=== PATIENT | female | born 1970 | race Caucasian/White ===

== ENCOUNTER 2016-10-10 09:42 | Observation (INO) | payer OTHER ==
--- NOTE | 2016-09-14 14:57 | PAT Medication Instructions ---
Service Date Sep 14, 2016. Current Home Medication List Albuterol Hfa (Ventolin Hfa), 2-4 PUFFS INH Q6H Albuterol Sulfate (Albuterol Sulfate), 1 VIAL NEB Q4H PRN for RN Citalopram Hydrobromide (Celexa), 30 MG PO HS Clonazepam (Klonopin), 1 MG PO BID PRN for RN Famotidine (Pepcid), 20 MG PO BID Gabapentin (Neurontin), 600 MG PO QID Hydroxyzine Hcl (Atarax), 50 MG PO QAM Hydroxyzine Pamoate (Vistaril), 100 MG PO HS Lisinopril (Zestril), 20 MG PO QAM Morphine Sulfate (Ms Contin), 30 MG PO Q12 Nasal Wash (Alkalol), 1 DOSE TOP TID PRN for RN Oxycodone Hcl (Oxycontin), 20 MG PO Q6H PRN for RN Pantoprazole (Protonix), 40 MG PO BID [Lidocaine 5%], 1 DOSE TOP TID PRN for PRN Medication Instructions For Your Scheduled Surgery - Hold the following medications 24 hours prior to surgery: [Lidocaine 5%], 1 DOSE TOP TID PRN for PRN - Hold the following medications the morning of surgery: Lisinopril (Zestril), 20 MG PO QAM Famotidine (Pepcid), 20 MG PO BID - Take the following medications the morning of surgery with a sip of water: Albuterol Hfa (Ventolin Hfa), 2-4 PUFFS INH Q6H (bring with you to hospital morning of surgery) Albuterol Sulfate (Albuterol Sulfate), 1 VIAL NEB Q4H PRN for RN Pantoprazole (Protonix), 40 MG PO BID Morphine Sulfate (Ms Contin), 30 MG PO Q12 (okay to take up to 4 hours prior to surgery if needed) Oxycodone Hcl (Oxycontin), 20 MG PO Q6H PRN for RN (okay to take up to 4 hours prior to surgery if needed) Clonazepam (Klonopin), 1 MG PO BID PRN for RN Gabapentin (Neurontin), 600 MG PO QID Hydroxyzine Hcl (Atarax), 50 MG PO QAM Nasal Wash (Alkalol), 1 DOSE TOP TID PRN for RN - Take the following medications as scheduled the night before surgery: Albuterol Hfa (Ventolin Hfa), 2-4 PUFFS INH Q6H Albuterol Sulfate (Albuterol Sulfate), 1 VIAL NEB Q4H PRN for RN Pantoprazole (Protonix), 40 MG PO BID Morphine Sulfate (Ms Contin), 30 MG PO Q12 Oxycodone Hcl (Oxycontin), 20 MG PO Q6H PRN for RN Hydroxyzine Pamoate (Vistaril), 100 MG PO HS Clonazepam (Klonopin), 1 MG PO BID PRN for RN Citalopram Hydrobromide (Celexa), 30 MG PO HS Gabapentin (Neurontin), 600 MG PO QID Famotidine (Pepcid), 20 MG PO BID Nasal Wash (Alkalol), 1 DOSE TOP TID PRN for RN If you have any questions please call us at [phone] (Isabel Webb PA-C) or [phone] or [phone]
[2016-09-14 15:28] LABS: BASO % 1.2 %; COMPLETE YES; EOS % 5.7 %; HEMATOCRIT 47.5 % (37-47); IG% 0.1 %; LYMPH % 40.1 %; LYMPH ABS # 3.48 K/uL (1.2-3.4); MEAN CELL VOLUME 89.6 fL (80-100); MEAN CORPUSCULAR HEMOGLOBIN 31.9 pg (25-34); MEAN CORPUSCULAR HGB CONC 35.6 g/dl (32-36); MEAN PLATELET VOLUME 10.3 fL (7.4-10.4); MONO % 8.4 %; NEUT % 44.5 %; PLATELET COUNT 279 K/uL (130-400); WHITE BLOOD COUNT 8.67 K/uL (4.8-10.8)
--- NOTE | 2016-09-14 15:34 | DIAGNOSTIC IMAGING REPORT ---
CHEST PREADMISSION(PA/LAT) CLINICAL HISTORY: Preoperative evaluation COMPARISON STUDY: No previous studies for comparison. FINDINGS: Lung volumes are normal. There is no pneumothorax or pleural effusion. Cardiac size is normal. Mediastinal contours are normal. A 2 cm irregular density projecting over the left hilum likely reflects normal vessels. There is no consolidation to suggest pneumonia. Elevation of the distal right clavicle is noted. IMPRESSION: 1. 2 cm irregular density projecting over the left hilum. This likely reflects normal vessels with summation artifact. However, a chest CT is recommended to exclude a pulmonary nodule. 2. No acute cardiopulmonary findings. Electronically signed by: Yves Escobar M.D. 09/14/2016 3:33 PM
[2016-09-14 15:40] LABS: PARTIAL THROMBOPLASTIN RATIO 1.2; PROTHROMBIN TIME (PATIENT) 10.4 SECONDS (9.0-12.0)
[2016-09-14 19:08] LABS: CREATININE 0.68 mg/dl (0.60-1.20)
[2016-09-14 19:21] LABS: CALCIUM 9.1 mg/dl (8.5-10.1)
--- NOTE | 2016-10-09 15:18 | HISTORY & PHYSICAL EXAMINATION ---
DATE OF ADMISSION: 10/10/2016 CHIEF COMPLAINT: Right shoulder injury. HISTORY OF PRESENT ILLNESS: This is a 46-year-old female patient of Dr. Caban'jose complaining of a shoulder injury status post a fall off of a ladder at home. She has failed physical therapy, narcotics and MRI showed a nonunion AC separation and distal clavicle fracture. The patient wished to proceed with an arthroscopic AC joint reconstruction with semitendinosis allograft, open distal clavicle excision and possible glenohumeral joint debridement. PAST MEDICAL HISTORY: Hypertension, hypercholesterolemia, irregular heartbeat, COPD, anxiety, carpal tunnel syndrome, neck problems, upper back problems, sciatica, acid reflux, hiatal hernia. SOCIAL HISTORY: A 1-pack per day smoker, lifelong. Not a drinker. PAST SURGICAL HISTORY: Gallbladder, and tubal ligation. FAMILY HISTORY: Noncontributory. REVIEW OF SYSTEMS: The patient complains of chronic right shoulder pain and decreased function. Otherwise, denies any shortness of breath, chest pain, nausea, vomiting or any other joint complaints. MEDICATIONS: Famotidine 20 mg b.i.d., Protonix 40 mg b.i.d., lisinopril 20 mg daily, Neurontin 600 mg q.i.d., hydroxyzine 50 mg daily and then 2 at night, Celexa 20 mg 1-1/2 tablets at bedtime, Klonopin 1 mg b.i.d., morphine 30 mg 1 tablet every 12 hours p.r.n. pain, oxycodone 20 mg every 6 hours p.r.n. pain. ALLERGIES: BENADRYL. PHYSICAL EXAMINATION: GENERAL: Well-developed, well-nourished 46-year-old female in no acute distress. She is alert and oriented x3 and pleasant. HEENT: Normocephalic, atraumatic. Extraocular motions are intact. Pupils are equal and reactive to light. HEART: Regular rate and rhythm, no murmurs are appreciated. LUNGS: Clear. ABDOMEN: Soft and nontender. Bowel sounds present. EXTREMITIES: Right shoulder reveals obvious tenderness over the AC joint. Active range of motion is 120 degrees, passively to 180. She has 3+ to 4/5 strength globally. Neurologically and neurovascularly, she is intact in her right upper extremity. She has about a 3-5 mm palpable separation at the AC joint. DIAGNOSES: Right shoulder acromioclavicular joint separation and distal clavicle fracture. She also has a history of hypertension, hypercholesterolemia, irregular heartbeat, chronic obstructive pulmonary disease, anxiety, carpal tunnel, neck problems, back problems, sciatica, acid reflux, hiatal hernia. PLAN: The patient was advised of her diagnosis. Indications, risks, benefits, and postop course have all been reviewed. The patient wished to proceed with a right shoulder arthroscopic AC joint reconstruction with semitendinosis allograft, open distal clavicle excision and possible glenohumeral joint debridement. Necessary consent forms, preoperative testing and clearances will be obtained.
[~2016-10-10] VITALS: Ht 160 cm; Wt 51.2 kg
[2016-10-10] VITALS (7 sets, daily range): BP systolic 109–139; BP diastolic 75–93; PULSE 81–109; TEMP 36.4–37; O2SAT 91–96; Ht 160 cm; Wt 51.2 kg
[~2016-10-10 09:42] MED LIST: ALBU0.633 NEB; BUPIVACAINE 0.5 % 5 MG/1 ML PF 10ML VIAL ONE; CEFAZOLIN 1000MG/55 ML D5W IV SCH; CITA10TA8 PO; CLON1TAB3 PO; DEXAMETHASONE SOD INJ 4 MG/ML VIAL ONE; FAMO20TA11 PO; GABA-113 PO; HYDR-3126 PO; HYDR50CA2 PO; LACTATED RINGER'S 1000ML 1,000 ML IV SCH; LIDOCAINE 5% TOP; LISI-725 PO; MORP30TA23 PO; OXYC20TA50 PO; PANT40TA PO; VNTHFA/IN INH; [UNRECOGNIZED DRUG - CODE] TOP
[2016-10-10] MEDS ORDERED: GLYCOPYRROLATE INJ 0.2 MG/ML VIAL ONE (11:21)
[2016-10-10] MEDS ORDERED: ROCURONIUM BROMIDE 10 MG/ML 5 ML VIAL ONE (11:21)
[2016-10-10] MEDS ORDERED: PROPOFOL IV EMULSION 10 MG/ML 20 ML VIAL IV ONE (11:21)
[2016-10-10] MEDS ORDERED: DEXAMETHASONE SOD INJ 4 MG/ML VIAL ONE (11:21)
[2016-10-10] MEDS ORDERED: NEOSTIGMINE METHYLSULFATE 5 MG/5 ML SYR ONE (11:21)
[2016-10-10] MEDS ORDERED: ONDANSETRON INJ 2 MG/ML 2 ML VIAL ONE (11:21)
[2016-10-10] MEDS ORDERED: LIDOCAINE HCL 2% 2 ML VIAL (20MG/ML) ONE (11:21)
[2016-10-10] MEDS ORDERED: FENTANYL CITRATE INJ 50 MCG/1 ML 2 ML VIAL ONE (11:22)
[2016-10-10] MEDS ORDERED: MIDAZOLAM HCL 1 MG/ML 2ML VIAL ONE ×2 (11:22→11:43)
[2016-10-10] MEDS ORDERED: LACTATED RINGER'S 1000ML 1,000 ML IV PRN (11:40)
[2016-10-10] MEDS ORDERED: ONDANSETRON INJ 2 MG/ML 2 ML VIAL IV PRN (11:45)
[2016-10-10] MEDS ORDERED: FENTANYL CITRATE INJ 50 MCG/1 ML 2 ML VIAL IV PRN (11:45)
--- NOTE | 2016-10-10 13:01 | History & Physical Bridge Note ---
H&P Re-Evaluation Bridge Note: I have examined the patient, reviewed the History & Physical and in the interval since the performance of the History & Physical I have noted the following changes of clinical significance: No changes noted
[2016-10-10] MEDS ORDERED: PHENYLEPHRINE HCL INJ 10 MG/ML VIAL ONE (14:11)
[2016-10-10] MEDS ORDERED: EpHEDrine SULFATE INJ 50 MG/ML AMP ONE (15:00)
[2016-10-10] MEDS ORDERED: ALBUTEROL 0.083% NEBU SOLN 3 ML VIAL INH PRN (16:30)
[2016-10-10] MEDS ORDERED: MoRPHine SULFATE 2 MG/ML CARP IV PRN ×2 (16:30→18:15)
[2016-10-10] MEDS ORDERED: LIDOCAINE HCL 5% OINT 30 GM TUBE EXT PRN (16:30)
[2016-10-10] MEDS ORDERED: CLONAZEPAM 1 MG TAB PO PRN (16:30)
--- NOTE | 2016-10-10 16:50 | Anesthesiology Progress Note ---
Anesthesia Post Op Note Date & Time Oct 10, 2016 at 16:49 Vital Signs Vital Signs Past 12 Hours Date Time Temp Pulse Resp B/P Pulse Ox O2 Delivery O2 Flow Rate FiO2 10/10/16 16:40 95 15 136/96 99 Mask 10 10/10/16 16:31 36.1 92 16 136/108 100 Mask 10 10/10/16 09:50 36.8 109 20 124/88 95 Room Air Notes Mental Status: alert / awake / arousable, participated in evaluation Pt Amnestic to Procedure: Yes Nausea / Vomiting: adequately controlled Pain: adequately controlled Airway Patency, RR, SpO2: stable & adequate BP & HR: stable & adequate Hydration State: stable & adequate Anesthetic Complications: no major complications apparent
[2016-10-10] MEDS ORDERED: MoRPHine SULFATE 4 MG/ML 1 ML CARP\\VIAL IV PRN (18:15)
--- NOTE | 2016-10-10 18:19 | OPERATIVE REPORT ---
DATE OF OPERATION: 10/10/2016 INDICATION FOR PROCEDURE: The patient is a 46-year-old female who sustained a shoulder injury to her right shoulder. She has had chronic pain. She was worked up with x-rays demonstrating a type 3-4 AC joint separation, but there is also a small distal clavicle fracture affecting the articular surface of the joint. The patient has had conservative management. Continues to have pain in her shoulder and prefers reconstructive surgery to living with disability she is having from her shoulder. PREOPERATIVE DIAGNOSES: Chronic right shoulder pain, posttraumatic grade 3-4 acromioclavicular joint separation with distal clavicle fracture and arthritic changes distal clavicle. POSTOPERATIVE DIAGNOSES: Same. PROCEDURES: Right shoulder arthroscopic assisted coracoclavicular ligament reconstruction using Arthrex dog bone technique and semitendinosis allograft and AC ligament augmentation using the semitendinosis allograft with distal clavicle excision. SURGEON: Dr. Caban. FIELD ARTILLERY CANNONEER: Man Padron PA-C. ANESTHESIA: Regional block general. OPERATIVE PROCEDURE: The patient had regional block and then general anesthetic. She was placed on a 70 degree beach chair position on a [facility] shoulder table and the right shoulder was examined. She clearly had instability of the AC joint. The clavicle was translated posteriorly up into and under the trapezius muscle. The shoulder itself had full passive motion otherwise. She is a very petite individual. Her shoulder was first sterilely prepped and draped with ChloraPrep. We marked out the anatomy and I introduced the arthroscope into the glenohumeral joint through a posterior arthroscopy portal in the soft spot. Then I made an anterior lateral arthroscopy portal for repair in the coracoid for the graft. First we did diagnostic arthroscopy and inspected the shoulder. The rotator cuff was intact. The labrum was intact, did have a sublabral foramen and had a biceps anchor that was intact, intact biceps tendon, intact rotator cuff and joint surfaces were normal. Labrum otherwise was normal around the glenoid. At this time, the undersurface of the coracoid was skeletonized using a radiofrequency ablator. The CA ligament was clearly identified as well as the conjoined tendon and then the undersurface of the coracoid identified. Then, the soft tissue was ablated on the undersurface of the coracoid down to the base of the coracoid. The base of the coracoid had a bony excrescence over it and I do not know if this was an old fracture, potentially in that area which is a possibility, was normal curvature and sweep of the undersurface of the coracoid, but there was no false motion consistent with a nonunion. At this time the coracoid was clearly skeletonized from lateral to medial so we could probe both sides of the undersurface of the coracoid and everything was exposed appropriately for graft placement. We had to release some of the upper portion of the middle glenohumeral ligament for visualization. Then, a transverse incision was made over the distal clavicle. There was about a 4 cm incision. The incision was made sharply. Subcutaneous flaps were elevated and then she had thin subcutaneous tissues. The clavicle was clearly displaced under the trapezius muscle posterior to the AC joint, but it was not embedded into the trapezius muscles so this was a type 3 instability. I divided the fascial plane between the deltoid and trapezius overlying the clavicle and coursing across the acromioclavicular joint. Once the joint was exposed it was distorted. There was chronic inflammation there. The end of the clavicle was arthritic and there were some fragments of bone from the fracture that occurred. Bone fragments were debrided, then I trimmed back the distal clavicle, I removed about 8 mm of distal clavicle with the oscillating saw and debrided all the bone fragments we could identify and some of the meniscus remnants and the AC joint. At this time with the clavicle fully mobilized from the scar tissue, the K-wire was placed percutaneously across the acromion and under fluoroscopic guidance with mini fluoroscopy, we advanced K-wire into the distal clavicle to provisionally hold the clavicle in position. After that was performed, I had previously marked the entrance point which was about 3 cm medial to the AC joint for placement of the coracoclavicular dog bone Arthrex fixator. The Arthrex guide was then placed to the anterior lateral portal, placed under the coracoid in the appropriate position and then the angle of the guide was adjusted appropriately. The drill hole was placed centered in the clavicle at the previously chosen spot on the clavicle and with everything in place this time we drilled 4 cortexes and visualized the drill bit coming through the inferior surface of the coracoid in appropriate position and then I passed a nitinol wire which subsequently passed a fiber stick type suture and then with the arthroscope working cannula in the anterolateral portal we passed the dog bone sutures retrograde through the coracoid to the superior clavicle. Then tensioned the sutures appropriately, placed the dog bone lying in the appropriate position under the coracoid, I felt the fixation was solid and then went ahead and in the superior incision, placed the other dog bone on the end of the tapes and advanced this down onto the clavicle. We reduced the clavicle in position and sutured the first tape with a surgeon's knots using an arthroscopic knot tie to make a tighter knot. Then we took the guidepin out, over reduced the clavicle and then further tightened down the second tape of the dog bone with a surgeon's knot as well. These were cut and then we placed the scope back into the joint, identified the placement for the semitendinosis graft. I used a spinal needle first to identify the angle of trajectory for the switching stick which was a pointed switching stick and then we advanced that under arthroscopic visualization into the appropriate position first from posterior clavicle to the medial side of the coracoid. Then we used dilators, starting with a small dilator to the larger dilator and then we passed a nitinol wire again through that tunnel and then passed our passing suture with a wire and then we went ahead and dilated the second tunnel. This one was anterior and going to the lateral side of the coracoid. After that was dilated and the nitinol wire passed, I used the previous passing suture to pass the tails of the semitendinosis graft and we went from superior into the joint and then passed those tails back up around the clavicle and then we looked at this arthroscopically and that the graft was under the coracoid and was over the dog bone. Then, the graft was tightened by crossing it over upon itself and pushing down on the clavicle and up on the elbow to help reduce the clavicle and then sutured the graft to itself with FiberTape sutures. After the FiberTape sutures were tied the lateral limb toward the anterior side was placed across the anterior AC joint. This limb was advanced to the deltoid fascia and deep to the deltoid and anterior to the acromion and anterior to the AC joint as further reinforcement and splinting of the AC joint to prevent posterior translation. Then this was sutured to the deltoid fascia and the end of the graft cut and the end of the other graft was cut. Then at this time the deltotrapezius fascia was closed with [id number] #2 Fiberwire sutures and then the subcutaneous tissue closed with interrupted #2 Vicryl and the skin was closed with khoa. Sterile dressings were applied and a shoulder immobilizer. LUIS ENRIQUE Waterman was my desk assistant. He functioned as desk assistant in the entire procedure. He assisted in patient positioning, prepping, draping in the OR. He repaired the graft which was prepared with whipstitches on both sides of the graft and placement of the tensioner prior to being used and he also performed the subcutaneous and skin closure and dressings and placed in the immobilizer and will participate in the postoperative care of the patient. I attest to the content of the Intraoperative Record and any orders documented therein. Any exceptio ns are noted below.
[2016-10-10] MEDS: D5W AND 1/2NSS + 20MEQ KCL 1,000 ML IV SCH (19:13)
[2016-10-10] MEDS: GABAPENTIN 600 MG TAB PO SCH ×2 (19:15→20:32)
[2016-10-10] MEDS: CEFAZOLIN IV 1,000 MG in DEXTROSE 5% 50ML 50 ML IV SCH (19:15)
[2016-10-10] MEDS: ALBUTEROL HFA 8 GM INHALER INH SCH ×2 (19:16→23:56)
--- NOTE | 2016-10-10 19:21 | DIAGNOSTIC IMAGING REPORT ---
Right shoulder RIGHT SHOULDER MIN 2 VIEW ROUTINE CLINICAL HISTORY: RT RECONSTRUCTION Right reconstruction TECHNIQUE: Image intensifier COMPARISON STUDY: None FINDINGS: Image intensifier utilized for right shoulder operative procedure IMPRESSION: Intraoperative image intensifier utilization Electronically signed by: Man Liriano M.D. 10/10/2016 7:19 PM
[2016-10-10] MEDS ORDERED: IV FLUIDS COMPLETED PRN (19:30)
[2016-10-10] MEDS: MoRPHine SULFATE CR 15 MG TAB (MS CONTIN) PO SCH (20:31)
[2016-10-10] MEDS: FAMOTIDINE 20 MG TAB PO SCH (20:33)
[2016-10-10] MEDS: PANTOprazole SOD 40 MG TAB PO SCH (20:33)
--- NOTE | 2016-10-10 20:34 | Medical Consult ---
Consultation Date of Consultation: Oct 10, 2016. Attending Physician: Israel Caban M.D. Reason for Consultation: Medical eval post-op History of Present Illness 46 y/o F w/Hx COPD, chronic pain, HTN, HPL - had fallen off a ladder and suffered a clavicular fracture - presented to the hospital today for AC joint reconstruction. The surgery proceeded without incident. The pt denies CP, SOB , N/V, fevers or lightheadedness post-op. She states her pain is controlled. Family History Heart disease, Lung disease, CA Social History Smokes 1 pack daily - dependent on a high dose of narcotics - denies ETOH Smoking Status: Current Every Day Smoker Alcohol Use: none Allergies Coded Allergies: Diphenhydramine (Verified Allergy, Unknown, FACE SWELLED THROAT SWELLED, ) Latex1 -Allergic Contact Dermititis (Verified Allergy, Unknown, CONTACT DERMATITIS, 10/10/16) Current Inpatient Medications Current Inpatient Medications Medications (Trade) Dose Ordered Sig/Gordo Route Start Time Stop Time Status Last Admin Dose Admin Lactated Ringer's (Lr 1000ml) 1,000 ml @ 15 mls/hr Q24H IV 10/10/16 06:00 10/11/16 05:59 Albuterol (Ventolin Hfa Inhaler) as needed Q6 INH 10/10/16 18:00 11/09/16 17:59 10/10/16 19:16 2 PUFFS Citalopram Hydrobromide (celeXA TAB) 30 mg HS PO 10/10/16 21:00 11/09/16 20:59 Clonazepam (Klonopin Tab) 1 mg BID PRN PO 10/10/16 16:30 11/09/16 16:29 Famotidine (Pepcid Tab) 20 mg BID PO 10/10/16 21:00 11/09/16 20:59 Gabapentin (Neurontin Tab) 600 mg QID PO 10/10/16 17:00 11/09/16 16:59 10/10/16 19:15 600 MG Hydroxyzine HCl (Vistaril Tab) 50 mg QAM PO 10/11/16 09:00 11/10/16 08:59 Lisinopril (Zestril Tab) 20 mg QAM PO 10/11/16 09:00 11/10/16 08:59 Oxycodone HCl (Oxycontin Tab) 20 mg Q6H PO 10/10/16 20:00 10/24/16 19:59 Pantoprazole Sodium (Protonix Tab) 40 mg BID PO 10/10/16 21:00 11/09/16 20:59 Albuterol Sulfate (Ventolin 0.083% 2.5MG/3ML Neb) 1 mg Q4H PRN INH 10/10/16 16:30 11/09/16 16:29 Hydroxyzine HCl (Vistaril Tab) 100 mg HS PO 10/10/16 21:00 11/09/16 20:59 Morphine Sulfate (Oramorph Sr Tab) 30 mg Q12 PO 10/10/16 21:00 11/09/16 20:59 Lidocaine HCl 1 appln 1 appln TID PRN EXT 10/10/16 16:30 11/09/16 16:29 Potassium Chloride/Dextrose/ Sod Cl 1,000 ml @ 100 mls/hr Q10H IV 10/10/16 16:29 11/09/16 16:28 10/10/16 19:13 100 MLS/HR Cefazolin Sodium/ Dextrose (Ancef Iv/D5 50ml) 55 ml @ 100 mls/hr Q8H IV 10/10/16 19:00 10/11/16 03:32 10/10/16 19:15 100 MLS/HR Acetaminophen (Tylenol Tab) 1,000 mg Q8 PO 10/10/16 22:00 11/09/16 21:59 Morphine Sulfate (MoRPHine SULFATE INJ) 2 mg Q2H PRN IV 10/10/16 18:15 10/24/16 18:14 Morphine Sulfate (MoRPHine SULFATE INJ) 4 mg Q2H PRN IV 10/10/16 18:15 10/24/16 18:14 Miscellaneous (Iv Fluids Completed) 1 ea PRN PRN N/A 10/10/16 19:30 10/10/17 19:29 Review of Systems Constitutional: No chills, No fever, No sweats Eyes: No eye pain, No worsening of vision ENT: No hearing loss, No nasal symptoms, No unusual epistaxis Respiratory: No cough, No sputum, No wheezing Cardiovascular: No PND, No chest pain, No orthopnea Abdomen: No nausea, No pain, No vomiting Musculoskeletal: + joint pain, + muscle pain Genitourinary - Female: No dysuria, No hematuria, No urinary frequency, No urinary incontinence, No urinary retention, No urinary urgency Neurologic: No memory loss, No paralysis, No weakness Psychiatric: No depression symptoms Endocrine: No fatigue Hematologic / Lymphatic: No abnormal bleeding/bruising Integumentary: No rash Allergic / Immunologic: No environmental allergies Physical Exam Date Time Temp Pulse Resp B/P Pulse Ox O2 Delivery O2 Flow Rate FiO2 10/10/16 19:37 36.5 99 16 109/75 93 Nasal Cannula 2.0 10/10/16 18:36 36.5 95 16 122/83 93 Nasal Cannula 2.0 10/10/16 18:02 36.4 81 18 139/93 96 Nasal Cannula 2.0 10/10/16 17:35 36.6 85 12 139/92 96 Nasal Cannula 2.0 10/10/16 17:35 Nasal Cannula 10/10/16 17:35 Nasal Cannula 10/10/16 17:29 87 17 137/89 96 Nasal Cannula 2 10/10/16 17:15 92 18 139/93 96 Nasal Cannula 2 10/10/16 17:00 36.4 93 14 137/90 96 Nasal Cannula 2 10/10/16 16:50 96 15 132/88 99 Mask 10 10/10/16 16:40 95 15 136/96 99 Mask 10 10/10/16 16:31 36.1 92 16 136/108 100 Mask 10 10/10/16 09:50 36.8 109 20 124/88 95 Room Air General Appearance: WD/WN, no apparent distress Head: normocephalic Eyes: normal inspection, PERRL, EOMI ENT: normal ENT inspection, pharynx normal Neck: supple, no JVD Respiratory/Chest: chest non-tender, lungs clear, normal breath sounds, no respiratory distress Cardiovascular: regular rate, rhythm, no edema, no gallop Abdomen/GI: normal bowel sounds, non tender, soft Extremities/Musculoskelatal: normal inspection, + pertinent finding (RUQ immobilized) Neurologic/Psych: videogame designer II-XII nml as tested, no motor/sensory deficits, alert, normal mood/affect, normal reflexes, oriented x 3 Skin: normal color, warm/dry, no rash Assessment & Plan 46 y/o F w/Hx COPD, chronic pain, HTN, HPL - had fallen off a ladder and suffered a clavicular fracture - presented to the hospital today for AC joint reconstruction. The surgery proceeded without incident. The pt denies CP, SOB , N/V, fevers or lightheadedness post-op. She states her pain is controlled. 1) Post - op - recovering well - pain controlled - antiemetics provided PRN, IVF 2) COPD - No wheezing/SOB, hypoxia at present - cont Albuterol 3) GERD - cont Albuterol 4) HTN - cont Lisinopril 5) Adviced on smoking cessation Total time for this consult including discussion with pt, review of records, meds and op records 28 min
[2016-10-10] MEDS: OXYCODONE HCL 20 MG TABCR (OXYCONTIN) PO SCH (20:40)
[2016-10-10] MEDS ORDERED: CITALOPRAM 20 MG TAB PO SCH (21:00)
[2016-10-10] MEDS ORDERED: hydrOXYzine HCL 25 MG TAB PO SCH (21:00)
[2016-10-10] MEDS: ACETAMINOPHEN 500 MG TAB PO SCH (21:39)
[2016-10-11] MEDS: OXYCODONE HCL 20 MG TABCR (OXYCONTIN) PO SCH ×2 (02:16→07:49)
[2016-10-11] MEDS: D5W AND 1/2NSS + 20MEQ KCL 1,000 ML IV SCH (02:16)
[2016-10-11] MEDS: CEFAZOLIN IV 1,000 MG in DEXTROSE 5% 50ML 50 ML IV SCH (02:16)
[2016-10-11 03:45] VITALS: BP 150/88; PULSE 70; TEMP 37.1; O2SAT 91
[2016-10-11] MEDS: ACETAMINOPHEN 500 MG TAB PO SCH (05:55)
[2016-10-11] MEDS: ALBUTEROL HFA 8 GM INHALER INH SCH (05:56)
[2016-10-11 07:09] VITALS: BP 105/64; PULSE 82; TEMP 36.7; O2SAT 90
[2016-10-11 07:20] LABS: HEMATOCRIT 40.7 % (37-47); MEAN CELL VOLUME 87.2 fL (80-100); MEAN CORPUSCULAR HEMOGLOBIN 29.8 pg (25-34); MEAN CORPUSCULAR HGB CONC 34.2 g/dl (32-36); MEAN PLATELET VOLUME 9.9 fL (7.4-10.4); PLATELET COUNT 303 K/uL (130-400); RED BLOOD COUNT 4.67 M/uL (4.2-5.4); WHITE BLOOD COUNT 11.68 K/uL (4.8-10.8)
[2016-10-11 07:52] LABS: BUN/CREATININE RATIO 13.3 (10-20); CALCIUM 8.8 mg/dl (8.5-10.1); CREATININE 0.64 mg/dl (0.60-1.20); POTASSIUM 4.1 mmol/L (3.5-5.1)
--- NOTE | 2016-10-11 08:02 | Orthopedic Progress Note ---
Orthopedic Progress Note Date of Service Oct 11, 2016. Subjective Post OP Day: 1 Reports: feeling well, pain controlled w PO medications, Denies: SOB, calf pain , chest pain, complaints, light headedness, nausea / vomiting Objective N/V intact, capillary refill less than 2 sec., dressing C/D/I, A&O x3 sling in tact, fingers mobile. Date Time Temp Pulse Resp B/P Pulse Ox O2 Delivery O2 Flow Rate FiO2 10/11/16 07:09 36.7 82 16 105/64 90 Room Air 10/11/16 03:45 37.1 70 18 150/88 91 Room Air 10/10/16 23:41 37.0 88 18 136/85 91 Room Air 10/10/16 20:35 36.5 91 14 133/86 94 Nasal Cannula 2.0 10/10/16 19:37 36.5 99 16 109/75 93 Nasal Cannula 2.0 10/10/16 19:00 Room Air 10/10/16 18:36 36.5 95 16 122/83 93 Nasal Cannula 2.0 10/10/16 18:02 36.4 81 18 139/93 96 Nasal Cannula 2.0 10/10/16 17:35 36.6 85 12 139/92 96 Nasal Cannula 2.0 10/10/16 17:35 Nasal Cannula 10/10/16 17:35 Nasal Cannula 10/10/16 17:29 87 17 137/89 96 Nasal Cannula 2 10/10/16 17:15 92 18 139/93 96 Nasal Cannula 2 10/10/16 17:00 36.4 93 14 137/90 96 Nasal Cannula 2 10/10/16 16:50 96 15 132/88 99 Mask 10 10/10/16 16:40 95 15 136/96 99 Mask 10 10/10/16 16:31 36.1 92 16 136/108 100 Mask 10 10/10/16 09:50 36.8 109 20 124/88 95 Room Air Laboratory Results 24 Hours: Test 10/11/16 07:00 Hematocrit 40.7 % Hemoglobin 13.9 g/dL Assessment & Plan Assessment: POD #1, Right shoulder corocoacromial and AC joints reconstructions with semitendosis allograft, open DCE. Plan: NO PT HEP as taught in hospital Pain meds as per pain clinic
[2016-10-11] MEDS ORDERED: OXYC20TA50 PO (08:05)
[2016-10-11] MEDS ORDERED: ACET-1138 PO (08:05)
[2016-10-11] MEDS ORDERED: MORP30TA23 PO (08:05)
--- NOTE | 2016-10-11 08:12 | Discharge Instructions ---
Discharge Instructions Admission Reason for Admission: Right Shoulder Ac Joint Separation, Djd Discharge Discharge Diagnosis / Problem: Rt shoulder AC and corocoacromial reconsrtuctions w allograft Discharge Goals Goal(s): Improve function Activity Recommendations Activity Limitations: as noted below . Instructions / Follow-Up Instructions / Follow-Up NO formal PT. May loosen sling 2-3 daily for elbow motion, do not raise arm above shoulder height. May shower and change dressings post op day #2, then daily dressing changes until follow up. No driving. Ice as needed. Limited pain medication supply given, contact pain clinic to resume pain medication from them there after. Follow up with Dr. Caban or his PA-C 12-14 days post op as scheduled, call to confirm. Current Hospital Diet Patient's current hospital diet: Regular Diet Discharge Diet Recommended Diet: Regular Diet Procedures Procedures Performed: Right Shoulder Scope, Acromioclavicular Joint Reconstruction With Semitendonosis Allograft, Open Distal Clavicle Excision Pending Studies Studies pending at discharge: no Medical Emergencies . Who to Call and When: Medical Emergencies: If at any time you feel your situation is an emergency, please call 911 immediately. . Non-Emergent Contact Non-Emergency issues call your: Surgeon . "Provider Documentation" section prepared by Man Padron. VTE Core Measure Inpt VTE Proph given/why not?: Treatment not indicated
--- NOTE | 2016-10-11 08:21 | Anesthesiology Progress Note ---
Anesthesia Post Op Note Date & Time Oct 11, 2016 at 08:20 Vital Signs Vital Signs Past 12 Hours Date Time Temp Pulse Resp B/P Pulse Ox O2 Delivery O2 Flow Rate FiO2 10/11/16 07:09 36.7 82 16 105/64 90 Room Air 10/11/16 03:45 37.1 70 18 150/88 91 Room Air 10/10/16 23:41 37.0 88 18 136/85 91 Room Air 10/10/16 20:35 36.5 91 14 133/86 94 Nasal Cannula 2.0 Notes Mental Status: alert / awake / arousable, participated in evaluation Pt Amnestic to Procedure: Yes Nausea / Vomiting: adequately controlled Pain: adequately controlled Airway Patency, RR, SpO2: stable & adequate BP & HR: stable & adequate Hydration State: stable & adequate Anesthetic Complications: no major complications apparent
[2016-10-11] MEDS ORDERED: hydrOXYzine HCL 25 MG TAB PO SCH (09:00)
[2016-10-11] MEDS ORDERED: LISINOPRIL 20 MG TAB PO SCH (09:00)
[2016-10-11] MEDS: FAMOTIDINE 20 MG TAB PO SCH (09:17)
[2016-10-11] MEDS: PANTOprazole SOD 40 MG TAB PO SCH (09:17)
[2016-10-11] MEDS: GABAPENTIN 600 MG TAB PO SCH (09:17)
[2016-10-11] MEDS: MoRPHine SULFATE CR 15 MG TAB (MS CONTIN) PO SCH (09:18)
--- NOTE | 2016-10-11 09:20 | Progress Note ---
Subjective Date of Service: Oct 11, 2016. Subjective Pt evaluation today including: conversation w/ patient, physical exam, chart review, lab review, review of studies, conversation w/ agriculture consultant, review of inpatient medication list Voiding: no voiding problems Sitting up, eating meal, right shoulder and right arm in sling, no complaining , no color changes in the finger, noting any numbness, no weakness Review of Systems Constitutional: No chills, No fatigue, No fever, No problem reported, No sweats , No weakness, No weight loss Eyes: No diplopia, No discharge, No eye pain, No redness, No worsening of vision ENT: No dental problems, No hearing loss, No nasal symptoms, No sore throat, No tinnitus, No trouble swallowing, No unusual epistaxis Respiratory: No cough, No dyspnea at rest, No dyspnea on exertion, No hemoptysis, No shortness of breath, No sputum, No wheezing Cardiac: No PND, No chest pain, No claudication, No edema, No orthopnea, No palpitations Abdomen: No constipation, No diarrhea, No nausea, No pain, No vomiting Musculoskeletal: + joint pain, No calf pain, No muscle pain, No swelling Female : No abnormal vaginal bleeding, No dysuria, No hematuria, No incontinence, No urinary frequency, No vaginal discharge Neurologic: No balance problems, No memory loss, No numbness/tingling, No paralysis, No vertigo, No weakness Psychiatric: No anhedonism, No anxiety, No depression symptoms, No insomnia, No substance abuse Heme: No abnormal bleeding/bruising, No clotting problems, No night sweats, No swollen lymph nodes Endo: No excessive thirst, No excessive urination, No fatigue Skin: No bleeding, No color change, No itch, No new/changing skin lesions, No rash Objective Vital Signs Date Time Temp Pulse Resp B/P Pulse Ox O2 Delivery O2 Flow Rate FiO2 10/11/16 07:50 Room Air 10/11/16 07:09 36.7 82 16 105/64 90 Room Air 10/11/16 03:45 37.1 70 18 150/88 91 Room Air 10/10/16 23:41 37.0 88 18 136/85 91 Room Air 10/10/16 20:35 36.5 91 14 133/86 94 Nasal Cannula 2.0 10/10/16 19:37 36.5 99 16 109/75 93 Nasal Cannula 2.0 10/10/16 19:00 Room Air 10/10/16 18:36 36.5 95 16 122/83 93 Nasal Cannula 2.0 10/10/16 18:02 36.4 81 18 139/93 96 Nasal Cannula 2.0 10/10/16 17:35 36.6 85 12 139/92 96 Nasal Cannula 2.0 10/10/16 17:35 Nasal Cannula 10/10/16 17:35 Nasal Cannula 10/10/16 17:29 87 17 137/89 96 Nasal Cannula 2 10/10/16 17:15 92 18 139/93 96 Nasal Cannula 2 10/10/16 17:00 36.4 93 14 137/90 96 Nasal Cannula 2 10/10/16 16:50 96 15 132/88 99 Mask 10 10/10/16 16:40 95 15 136/96 99 Mask 10 10/10/16 16:31 36.1 92 16 136/108 100 Mask 10 10/10/16 09:50 36.8 109 20 124/88 95 Room Air Physical Exam General Appearance: WD/WN, no apparent distress Eyes: normal inspection, PERRL, EOMI, sclerae normal ENT: normal ENT inspection, hearing grossly normal, pharynx normal Neck: supple, no adenopathy, thyroid normal, no JVD, no carotid bruits, trachea midline Respiratory/Chest: chest non-tender, lungs clear, normal breath sounds, no respiratory distress, no accessory muscle use Cardiovascular: regular rate, rhythm, no edema, no gallop, no JVD, no murmur Abdomen: normal bowel sounds, non tender, soft, no organomegaly, no pulsatile mass Extremities: normal range of motion, non-tender, normal inspection, no pedal edema, no calf tenderness, normal capillary refill, pelvis stable, + pertinent finding (right shoulder in dress, sitting in right arm, radial pulse and fingers , were normal) Neurologic/Psychiatric: branch services manager II-XII nml as tested, no motor/sensory deficits, alert, normal mood/affect, oriented x 3 Skin: normal color, warm/dry, no rash Lymphatic: no adenopathy Laboratory Results Last 24 Hours Test 10/11/16 07:00 White Blood Count 11.68 K/uL Red Blood Count 4.67 M/uL Hemoglobin 13.9 g/dL Hematocrit 40.7 % Mean Corpuscular Volume 87.2 fL Mean Corpuscular Hemoglobin 29.8 pg Mean Corpuscular Hemoglobin Concent 34.2 g/dl RDW Standard Deviation 48.8 fL RDW Coefficient of Variation 15.3 % Platelet Count 303 K/uL Mean Platelet Volume 9.9 fL Sodium Level 143 mmol/L Potassium Level 4.1 mmol/L Chloride Level 109 mmol/L Carbon Dioxide Level 26 mmol/L Anion Gap 8.0 mmol/L Blood Urea Nitrogen 9 mg/dl Creatinine 0.64 mg/dl Est Creatinine Clear Calc Drug Dose 87.8 ml/min Estimated GFR () 123.2 Estimated GFR (Non- 106.3 BUN/Creatinine Ratio 13.3 Random Glucose 162 mg/dl Calcium Level 8.8 mg/dl Assessment and Plan 46 y/o F was admitted to orthopedic service after had fallen off a ladder and suffered a clavicular fracture - Had procedure of AC joint reconstruction, which was done on 10/10/2016 The surgery proceeded without incident. The pt denies CP, SOB, N/V, fevers or lightheadedness post-op. She states her pain is controlled. The management of Post - op , include discharge plan DVT prophylaxis, pain control, will be per orthopedic team w/Hx COPD, chronic pain, HTN, HPL , stable I did consult and Adviced on smoking cessation again I told her to follow-up with primary care physician in 1-2 week Follow up with orthopedic surgeon as instructed Continued [facility] [place] stay due to: multiple IV medications needed Discharge planning: home
[2016-10-11 10:42] VITALS: BP 105/64; PULSE 82; TEMP 36.7; O2SAT 90
--- NOTE | 2016-10-23 22:10 | DISCHARGE SUMMARY ---
This is a 46-year-old female patient of Dr. Caban who is complaining of shoulder injury status post fall off a ladder at home. She failed physical therapy. 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 The patient wished to proceed with a coracoacromial ligament and AC joint reconstruction with Dog Bone technique with semitendinosus allograft and distal clavicle excision. PAST MEDICAL HISTORY: Hypertension, hypercholesterolemia, irregular heartbeat, COPD, anxiety, carpal tunnel syndrome, neck problems, upper back problems, sciatica, acid reflux and hiatal hernia. POSTOPERATIVE COURSE: The patient underwent a right shoulder coracoacromial ligament and AC reconstruction with Dog Bone technique with semitendinosus allograft and an open distal clavicle excision on 10/10/2016. Postoperatively, she was followed closely with pain control and limited physical therapy. She did well postoperatively and was discharged home on postoperative day #1. PHYSICAL EXAMINATION ON DISCHARGE: Right shoulder dressings were clean, dry and intact. Sling was intact and in place. Neurologically and neurovascularly, she was intact in her right upper extremity, and fingers are mobile. DIAGNOSES: Status post right shoulder coracoacromial ligament and AC joint reconstruction with semitendinosus allograft with an open distal clavicle excision. She also has a history of hypertension, hypercholesterolemia, irregular heartbeat, COPD. The patient was discharged home on her preadmission medications as well as pain medications. She will do a limited home exercise programs and wear her sling fulltime, will follow up in the office as scheduled. MIRZA
== END 2016-10-11 11:00 | disposition home or self-care (01) ==
LOC: ENRESERVTM → ENRESERVDT → C.ACU 09:42 → C.3E 16:42
PROVIDERS: ADMIT Orthopaedic Surgery Sports Medicine; ATTEND Orthopaedic Surgery Sports Medicine
DX: S42.001A Fracture of unspecified part of right clavicle, initial encounter for closed fracture (principal); S43.101A Unspecified dislocation of right acromioclavicular joint, initial encounter; W11.XXXA Fall on and from ladder, initial encounter; K21.9 Gastro-esophageal reflux disease without esophagitis; J44.9 Chronic obstructive pulmonary disease, unspecified; K44.9 Diaphragmatic hernia without obstruction or gangrene; I10 Essential (primary) hypertension; E78.00 Pure hypercholesterolemia, unspecified; F17.200 Nicotine dependence, unspecified, uncomplicated; Z90.49 Acquired absence of other specified parts of digestive tract